=== PATIENT | female | born 1955 | race Caucasian/White ===

== ENCOUNTER 2016-12-17 05:45 | Day surgery (SDC) | payer OTHER ==
--- NOTE | 2016-12-11 15:29 | EKG Report ---
Test Performed on : 12/11/2016 3:14:54 PM Test Reason : PAT Blood Pressure : / mmHG Vent. Rate : 064 BPM Atrial Rate : 064 BPM P-R Int : 182 ms QRS Dur : 088 ms QT Int : 422 ms P-R-T Axes : 066 069 070 degrees QTc Int : 435 ms Normal sinus rhythm. Normal ECG No previous ECGs available Confirmed by Sera CAMPOS, Edy Caceres ([id number]) on 12/12/2016 9:29:26 AM
[2016-12-11 15:37] LABS: URINE MICRO REVIEW NEEDED? NO; URINE SOURCE CLEAN CATCH
[2016-12-11 15:55] LABS: HEMATOCRIT 42.4 % (37.0-47.0); HEMOGLOBIN 13.7 g/dL (12.0-16.0); MCH 28.1 PG (27-31); MCHC 32.3 g/dL (33-37); MCV 86.9 FL (81-99); MPV 11.4 FL (7.4-10.4); RBC 4.88 XMIL (4.2-5.4)
[2016-12-11 15:58] LABS: BILIRUBIN URINE NEGATIVE (NEGATIVE); BLOOD URINE NEGATIVE (NEGATIVE); COLOR YELLOW; GLUCOSE URINE NEGATIVE (NEGATIVE); LEUKOCYTES URINE NEGATIVE (NEGATIVE); NITRITE URINE NEGATIVE (NEGATIVE); PH URINE 5.5; PROTEIN URINE NEGATIVE (NEGATIVE); SP GRAVITY URINE 1.023; TURBIDITY URINE CLEAR (CLEAR); UROBILINOGEN URINE NORMAL (NORMAL)
[2016-12-11 15:59] LABS: UR EPITHELIAL CELLS <10 /HPF (<10); URINE BACTERIA NEGATIVE /HPF; URINE RBC <10 /HPF (<10); URINE WBC <10 /HPF (<10)
[2016-12-11 16:13] LABS: AGAP 12; ALBUMIN 4.2 g/dL (3.5-5.0); ALKALINE PHOSPHATASE 163 U/L (32-104); BUN 16 mg/dL (8-22); CALCIUM 9.1 mg/dL (8.8-10.2); CHLORIDE 98 mmol/L (98-107); COSMO 275; GOT 22 U/L (10-30); GPT 23 U/L (10-36); POTASSIUM 4.2 mmol/L (3.5-5.1); SODIUM 137 mmol/L (136-145); TCO2 27 mmol/L (25-35); TOTAL BILIRUBIN 0.18 mg/dL (0.20-1.00); TOTAL PROTEIN 7.8 g/dL (6.3-8.3)
[2016-12-17] MEDS ORDERED: TRANSDERM-SCOP ONE (06:12)
[2016-12-17] MEDS ORDERED: PEPCID ONE (06:12)
[2016-12-17] MEDS ORDERED: LR 1,000 ML ONE ×2 (06:12→16:33)
[2016-12-17] MEDS ORDERED: LOVENOX ONE (06:12)
[2016-12-17] MEDS ORDERED: KEFZOL 2 GM/D5W 50 ML ONE (06:12)
[2016-12-17] MEDS ORDERED: REGLAN ONE (06:12)
[2016-12-17] MEDS ORDERED: MURI-LUBE MINERAL OIL ONE (09:30)
[2016-12-17] MEDS ORDERED: BACITRACIN ONE (09:30)
[2016-12-17] MEDS ORDERED: METHYLENE BLUE 1% ONE (10:14)
--- NOTE | 2016-12-17 13:54 | OPERATIVE NOTE ---
PROCEDURE DATE: 12/17/2016 PREOPERATIVE DIAGNOSIS: Right breast cancer. POSTOPERATIVE DIAGNOSIS: Right breast cancer with metastases to the right axillary nodes. PRINCIPAL PROCEDURE: 1. Right breast lumpectomy. 2. Right axillary sentinel lymph node biopsy x1. 3. Completion right axillary lymph node dissection. SURGEON: Annamarie Martinez MD ARTS EDUCATION TEACHER: Marika Marks RN. ANESTHESIA: General. ESTIMATED BLOOD LOSS: 75 mL. DRAINS: Per Dr. Avendaño. INDICATIONS: Ms. Latrice Interiaon is a 61-year-old white female who noticed a palpable right breast mass along the inframammary fold medially in the right breast. She underwent mammogram and ultrasound which suggested a 2.4 to 2.5 cm mass just superior to the inframammary fold, medially in the right breast. 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 We discussed surgical treatment options and she chose breast conservation with bilateral breast reduction with the help of our plastic surgeon, Dr. Avendaño. FINDINGS: We had a generous lumpectomy around the inferior medial 2.47 mass just above the inframammary fold on the left. Dr. Avendaño had marked the reduction scars and that included skin overlying our tumor and a generous amount of breast tissue circumferentially around the breast cancer. Surely we felt our margins would be negative. I did do a sentinel lymph node biopsy on palpation of the right axilla, doing the sentinel lymph node. I was concerned about how firm several lymph nodes felt and whether they were even adhered to each other. We sent 1 down as sentinel node #1 and the frozen section documented cancer within this node. Because of the abnormal exam of the axilla and possible even matted lymph nodes, I decided to proceed with a completion right axillary lymph node dissection despite doing breast conservation with bilateral breast reduction. Multiple lymph nodes appeared to be positive as I dissected out the axilla. We did observe the long thoracic and thoracodorsal nerves and felt we preserved them throughout our dissection. We felt we had a clean dissection of level 1 and 2 lymph nodes. DESCRIPTION OF PROCEDURE: The patient was brought to the operating room, placed supine, and received general anesthesia. She had already been marked for her bilateral breast reduction per Dr. Avendaño. She was prepped and draped per Dr. Avendaño. She received prophylactic antibiotics. Initially Dr. Avendaño and I worked together on the right side to determine our incisions and the lumpectomy. After incisions were made on the skin for the reduction, I have performed the lumpectomy of the right breast using cautery. We removed the skin overlying the tumor and a generous amount of breast tissue circumferentially around this tumor. The dissection was performed using cautery and we removed this breast tissue down to the pectoralis major muscle as our deep margin. It was sent to the pathologist for permanent section. I then made an oblique incision beginning in the right axilla and cautery was used to get down through the subcutaneous fat to the fat of the axilla and a lymph node was found which was palpably abnormal. Because of its firmness and it was enlarged, it was removed and sent to the pathologist for frozen section and came back positive tumor which we were not surprised. Because multiple lymph nodes were positive by clinical exam and I was worried that some were even matted, I proceeded with a completion right axillary lymph node dissection. We defined our margins initially. Using cautery I came down along the lateral aspect of the pectoralis major muscle and minor muscle onto the serratus anterior muscles. Laterally I identified the latissimus dorsi and superiorly I identified the axillary vein. We used medium clips to control some branches off the vein and also some small arteries draped across the axillary vein. We identified high in the axilla the long thoracic and thoracodorsal nerves and dissected all of the soft tissue in between these nerves from superior to inferior. We followed the course of these nerves along this serratus anterior and into the latissimus dorsi preserving the nerves along their length and taking all the soft tissue and lymph nodes in between these nerves and along the latissimus dorsi and serratus anterior from superior to inferior. We used the ligature for a lot of our dissection. We removed the axillary contents from the right axilla and sent them down to the pathologist for permanent section. We felt we had a clean dissection of the right axilla and there was no evidence of ongoing bleeding and we felt we preserved the long thoracic and thoracodorsal nerves. Dr. Avendaño was called to continue working on the bilateral breast reduction and closure of our wounds. I spoke with the after the procedure.
[2016-12-17] MEDS: KEFZOL 1 GM/D5W 50 ML ONE ×2 (14:06→14:15)
[2016-12-17] MEDS ORDERED: DIPRIVAN 1% ONE (16:18)
[2016-12-17] MEDS ORDERED: FENTANYL ONE (16:18)
[2016-12-17] MEDS ORDERED: NORCURON ONE (16:43)
[2016-12-17] MEDS ORDERED: EPHEDRINE ONE (16:43)
[2016-12-17] MEDS ORDERED: ZOFRAN ONE (16:43)
[2016-12-17] MEDS ORDERED: NEOSTIGMINE ONE (16:43)
[2016-12-17] MEDS ORDERED: MORPHINE ONE ×2 (16:43→16:53)
[2016-12-17] MEDS ORDERED: ROBINUL ONE (16:43)
[2016-12-17] MEDS ORDERED: DECADRON ONE (16:44)
[2016-12-17] MEDS ORDERED: XYLOCAINE-MPF 2% ONE (16:44)
[2016-12-17] MEDS ORDERED: LR 2,000 ML ONE (16:44)
[2016-12-17] MEDS ORDERED: QUELICIN (DOSE) ONE (16:44)
[2016-12-17] MEDS ORDERED: NORCO-10 ONE (17:23)
--- NOTE | 2016-12-17 18:43 | OPERATIVE NOTE ---
PROCEDURE DATE: 12/17/2016 PROCEDURE: Bilateral reduction mammoplasty in combination with right lumpectomy for breast cancer. SURGEON: Dr. Dominick Avendaño. The ICD 10 diagnosis code for this case is Z85.3, personal history of breast cancer and N62 breast hypertrophy. [place] [address], reduction mammoplasty and 25334-29 reduction mammoplasty of the other side. INDICATION FOR PROCEDURE: This patient is a 61-year-old, white female who has a new breast cancer diagnosed by Dr. Martinez. She has large ptotic breasts and she is slightly overweight. She is an excellent candidate for lumpectomy regarding taking care of her breast cancer and she is then also an excellent candidate for doing a reduction at the same time as a lumpectomy to lift and re-shape both of her breasts and not leave her with a deformity. This plan was acceptable to Dr. Martinez and the patient and she was seen in the office for informed consent for this procedure on 12/11/2016. At that point, she understood that she would have a bilateral reduction mammoplasty in combination with a lumpectomy to be done by Dr. Martinez. She understood that exact bra cup size change cannot be guaranteed and exact shape changes could not be guaranteed and her case was more complicated because we are doing it in combination with the medial lumpectomy on the right breast. She understands the risks include infection, blood loss, blood clots in legs, heart problems, lung problems, allergic reactions, or blood and serum collections in the operative sites that might require drainage. She understands exact size and shape cannot be guaranteed as with nonoperative breast there can be some asymmetry from side to side. She knows her skin incision will be around the areola from the areola to the inferior fold and within the inframammary fold and that is where the scars will be. She understands that her nipples will be transferred as skin grafts so we can remove the maximum amount of ductal tissue from the back of the grafts and maximum amount of breast tissue from inside of the breast. She understands she will lose her nipple sensation. She knows in the future she is to continue have mammography as ordered by her family physician, GENERAL ASSISTANT physician or oncologist or general surgeon. DESCRIPTION OF PROCEDURE: The patient was brought to the operating after she was marked in outpatient surgery in sitting position for the reduction. She went to the operating room. Under general anesthesia prepped and draped. The operation began by doing the W pattern skin flap incision on the right side, lifting those flaps for a small amount superiorly, then doing the inferior incision both along the inferior border and then the inferior vertical incision where the pedicle normally would be. Then Dr. Martinez took over to complete the resection and make sure he felt like he had an adequate wedge of tissue around the lump and he thought he did. Prior to doing that he did a sentinel lymph node biopsy and those were positive so he did a lymph node dissection on the right side. While he was working on the lymph node dissection, I did the breast reduction on the left side, lifting the W pattern flaps and removing the breast tissue from medial to lateral and de-epithelializing the central pedicle. When Dr. Martinez was done on the right side, attention was then turned to completing that reduction. The lateral dissection was then done. The pedicle was more lateral than normal because of the lumpectomy so the skin flap was left thicker on the medial side to fill in the defect from the lumpectomy and the lateral portion of the pedicle that was remained was stitched to the chest to keep good fill volume. She was irrigated with bacitracin solution and hemostasis was achieved with electrocautery. She was tacked closed with silk sutures over drains. Both pedicles were tacked to the pectoralis muscle with 2-0 Polysorb sutures. She was closed with an interrupted 3-0 Polysorb deep dermal sutures at the junction of the flaps followed by a running 3-0 Polysorb deep dermal suture, followed by running 4-0 Biosyn subcuticular stitch. The verticals were closed with interrupted 3-0 Polysorb sutures. The drain was placed in the axillary node dissection site and then that incision that was a counter incision in the right axilla was closed with some 2-0 Polysorb sutures in the deep fat, 3-0 Polysorb deep dermal sutures, then a running 4-0 Biosyn subcuticular stitch. All the drains were secured with silk drainage stitches. She was put back in the sitting position. The level of the nipple exit which were to be marked was marked with a 30 mm nipple areolar marker. This was de-epithelialized to be a recipient bed for the nipples. The nipples were thinned on the back table and then were placed back on the breast as full-thickness skin grafts. They were held in place with eight 4-0 silks left long to make a tie-over bolster and then a running 5-0 nylon stitch. Bolsters made of mineral oil-soaked cotton and Xeroform gauze. She tolerated the procedure well and was transferred to the recovery room in good condition. The total amount of resection for the reduction on the right breast was 886 g. The total amount of resection for reduction of the left breast was 682 g.
[2016-12-17 18:48] VITALS: BP 145/93
== END 2016-12-17 19:01 | disposition home or self-care (01) ==
LOC: OPS 05:45
PROVIDERS: ATTEND Surgery Plastic and Reconstructive Surgery
DX: C50.911 Malignant neoplasm of unspecified site of right female breast (principal); C77.3 Secondary and unspecified malignant neoplasm of axilla and upper limb lymph nodes
CPT/HCPCS: 38792; 80053; 81001; 85027; 88307; 88331; 93005; 93010; A9520; J0330; J0690; J1100; J1650; J2270; J2405; J3010; J7120; Q9968; J2710

== ENCOUNTER 2016-12-20 04:51 | Emergency (ER) ==
--- NOTE | 2016-12-20 05:22 | PROVIDER DOCUMENTATION ---
HPI-Chest Pain - General Source: patient - History of Present Illness-CP Location: reports: central Chest Pain Radiation: reports: neck (rt side) Quality of Pain: reports: aching, sharp Severity in ED: moderate Onset/Duration: abrupt Timing: improving (2/6) Context/Activities at Onset: reports: rest Modifying Factors: improves with: rest Associated Symptoms: reports: diaphoresis, shortness of breath Nitro Today/Relief: no nitro taken today Aspirin Treatment Today: no aspirin today Prior Chest Pain/Cardiac Workup: reports: no prior chest pain, stress test (2014 ) Similar Symptoms Previously?: No Recently Seen Here or By Another Healthcare Provider: Yes (seen by plastic sx yesterd for dressing chnge) <Kelechi Burgos - Last Filed: 12/20/16 06:02> <Sherrell Wagner - Last Filed: 12/20/16 10:23> - General Chief Complaint: Chest Pain Stated Complaint: CP Time Seen by Provider: 12/20/16 05:09 Allergies/Adverse Reactions: Patient Allergies Allergy/AdvReac Type Severity Reaction Status Date / Time No Known Allergies Allergy Verified 12/20/16 05:20 Home Medications: Home Medication List Medication Instructions Recorded Confirmed Last Taken Type Cephalexin [Keflex] 500 mg PO TID 12/20/16 12/20/16 12/19/16 10:00 History Hydrocodone/APAP 10 mg/325 mg 1 each PO Q4H 12/20/16 12/20/16 12/20/16 02:00 History [[place]-10] - History of Present Illness-CP Nature of Presenting Problem: pt had bilateral breast reduction and ca removal re breast /pt wake up 1 hr ago w/rt cp and sob assoc w/hot sweating lasting few mins ...still feeling sore in top of her center chest (Kelechi Burgos) Review of Systems - Adult - REVIEW OF SYSTEMS - ADULT Constitutional: reports: see HPI All Other Systems: Reviewed and Negative <Kelechi Burgos - Last Filed: 12/20/16 06:02> Past History - Adult - PAST MEDICAL HISTORY-ADULT Review of Records: reports: Old Records Reviewed, Nursing Assessment Review, Medications Reviewed, Social history reviewed & non-contributory. Major Childhood Illnesses: reports: denies history Cardiovascular: reports: denies history Respiratory: reports: denies history Gastrointestinal: reports: denies history Genitourinary: reports: denies history Musculoskeletal: reports: denies history Psychiatric: reports: denies history Endocrine/Immune: reports: cancer - PRIOR SURGERIES/PROCEDURES Surgical/Procedure History: reports: reviewed, not pertinent - PRIOR HOSPITALIZATIONS Prior Hospitalizations: reports: for other non-related - IMMUNIZATION STATUS Childhood Immunizations: See Nurse Assessment Flu Vaccine: See Nurse Assessment - FAMILY HISTORY Family History: reviewed, not pertinent - SOCIAL HISTORY Smoking: denies Provider spent 3-5 mins advising pt. on dangers of tobacco.: Discussed manners to quit use, and f/u contacts for add'l counseling. Substance Use: none/never Living Situation: family <Kelechi Burgos - Last Filed: 12/20/16 06:02> Physical Exam-General - PHYSICAL EXAM-ADULT Initial Vital Signs Reviewed: Yes - CONSTITUTIONAL General Appearance: appears well, alert, no apparent distress - EYES Eyes: PERRL/EOMI, pink conjunctivae - HEAD, EARS, NOSE, MOUTH & THROAT HENMT: normocephalic/atraumatic, moist mucous membranes, normal ENT inspection - NECK Neck: non-tender, full range of motion, supple, normal inspection - RESPIRATORY Respiratory: no respiratory distress, no accessory muscle use, decreased breath sounds (rt side), pain on inspiration. negative: retractions - CARDIOVASCULAR Cardiovascular: normal peripheral pulses, regular rate, rhythm, no edema, no gallop - CHEST (BREASTS) Chest/Breast: tenderness (upper center chest) - GASTROINTESTINAL (ABDOMEN) Abdominal Exam: normal bowel sounds, non tender, soft, no organomegaly - LYMPHATIC Lymphatic: no adenopathy, axilla node tender - MUSCULOSKELETAL Back Exam: normal inspection, no CVA tenderness, no vertebral tenderness Extremity: normal range of motion, non-tender - SKIN Integumentary: normal color, normal turgor, other (patent vacum drainge to both breast /no pus drainage) - NEUROLOGIC Neurologic: telesales representative II-XII nml as tested, grossly normal, no motor/sensory deficits - PSYCHIATRIC Psych/Mental Status: normal mood/affect, oriented x 3 <Kelechi Burgos - Last Filed: 12/20/16 06:02> Progress - REASSESSMENT Reassessment #1 Time Reassessed: 05:40 Status: improving - EKG 1 Time of EKG reading by physician:: 05:15 EKG Interpretation (*Must complete 3 of following elements*): Normal Rate: 75 Rhythm: snr [place]: normal QRS: normal ST Wave: non-specific ST changes - CHANGE OF SHIFT REPORT (ED Provider) Report Given and Care Transferred to:: dr sr Time of Transfer: 06:03 Items Pending: CT/MRI Results, Physician Consult/Arrival <Kelechi Burgos M - Last Filed: 12/20/16 06:02> - REASSESSMENT Reassessment #2 Time Reassessed: 10:21 Status: improving (Pt is doing better, pain free. Ready to go home. Reports seh has anxiety after surgery.) - XRAY 1 XRAY Study: Chest Impression: Normal - CT/MRI 1 CT Results: CT chest PE study - no PE, bibasilar atelectasis and mild gas trapping. Cmg <Sherrell Wagner X - Last Filed: 12/20/16 10:23> - PLAN OF CARE/RESULTS Progress/Plan/Lab Results: Laboratory Results - last 24 hr 12/20/16 12/20/16 12/20/16 05:30 05:30 05:30 WBC 8.41 RBC 3.61 L Hgb 10.0 L Hct 31.9 L MCV 88.4 MCH 27.7 MCHC 31.3 L RDW Std Deviation 14.6 H Plt Count 277 MPV 11.7 H Immature Gran % (Auto) 0.2 Neut % (Auto) 54.4 Lymph % (Auto) 34.1 [place] % (Auto) 8.1 Eos % (Auto) 3.1 Baso % (Auto) 0.1 Immature Gran # (Auto) 0.02 Neut # (Auto) 4.57 Lymph # (Auto) 2.87 [place] # (Auto) 0.68 H Eos # (Auto) 0.26 Baso # (Auto) 0.01 PT INR PTT (Actin FS) D-Dimer 0.26 Specimen Type Sample Site pH pCO2 pO2 HCO3 Base Excess Oxyhemoglobin ABG O2 Sat (Calculated) ABG O2 Saturation ABG Carboxyhemoglobin ABG Methemoglobin Edy Test A-a O2 Difference Total Hemoglobin Lactate Blood Gas Modality FiO2 % Sodium 136 Potassium 4.3 Chloride 97 L Carbon Dioxide 27 Anion Gap 12 BUN 10 Creatinine 0.6 Estimated GFR/1.73 m2 > 60 BUN/Creatinine Ratio 17 Glucose 99 POC Glucose Calculated Osmolality 271 Calcium 8.5 L Total Bilirubin 0.37 AST 98 H ALT 66 H Alkaline Phosphatase 136 H Creatine Kinase 63 Troponin T Scz-Y-Fncxlwaurgq Pept Total Protein 6.4 Albumin 3.2 L Globulin 3.2 Albumin/Globulin Ratio 1.0 12/20/16 12/20/16 12/20/16 05:30 05:30 05:30 WBC RBC Hgb Hct MCV MCH MCHC RDW Std Deviation Plt Count MPV Immature Gran % (Auto) Neut % (Auto) Lymph % (Auto) [place] % (Auto) Eos % (Auto) Baso % (Auto) Immature Gran # (Auto) Neut # (Auto) Lymph # (Auto) [place] # (Auto) Eos # (Auto) Baso # (Auto) PT 10.3 INR 0.97 PTT (Actin FS) 25.9 D-Dimer Specimen Type Sample Site pH pCO2 pO2 HCO3 Base Excess Oxyhemoglobin ABG O2 Sat (Calculated) ABG O2 Saturation ABG Carboxyhemoglobin ABG Methemoglobin Edy Test A-a O2 Difference Total Hemoglobin Lactate Blood Gas Modality FiO2 % Sodium Potassium Chloride Carbon Dioxide Anion Gap BUN Creatinine Estimated GFR/1.73 m2 BUN/Creatinine Ratio Glucose POC Glucose Calculated Osmolality Calcium Total Bilirubin AST ALT Alkaline Phosphatase Creatine Kinase Troponin T < 0.010 Nox-Q-Nedxrgbihju Pept 174 Total Protein Albumin Globulin Albumin/Globulin Ratio 12/20/16 12/20/16 12/20/16 05:35 07:12 09:00 WBC RBC Hgb Hct MCV MCH MCHC RDW Std Deviation Plt Count MPV Immature Gran % (Auto) Neut % (Auto) Lymph % (Auto) [place] % (Auto) Eos % (Auto) Baso % (Auto) Immature Gran # (Auto) Neut # (Auto) Lymph # (Auto) [place] # (Auto) Eos # (Auto) Baso # (Auto) PT INR PTT (Actin FS) D-Dimer Specimen Type ARTERIAL Sample Site R RADIAL pH 7.41 pCO2 49 H pO2 117 H HCO3 29.3 H Base Excess 5.6 H Oxyhemoglobin 95.5 ABG O2 Sat (Calculated) 14.0 L ABG O2 Saturation 98.3 ABG Carboxyhemoglobin 1.20 ABG Methemoglobin 1.5 Edy Test YES A-a O2 Difference -29.0 Total Hemoglobin 10.3 L Lactate 0.70 Blood Gas Modality ROOM AIR FiO2 % 21.0 Sodium Potassium Chloride Carbon Dioxide Anion Gap BUN Creatinine Estimated GFR/1.73 m2 BUN/Creatinine Ratio Glucose POC Glucose 338 H Calculated Osmolality Calcium Total Bilirubin AST ALT Alkaline Phosphatase Creatine Kinase 54 Troponin T Lhf-Y-Owkziwexwvf Pept Total Protein Albumin Globulin Albumin/Globulin Ratio 12/20/16 09:00 WBC RBC Hgb Hct MCV MCH MCHC RDW Std Deviation Plt Count MPV Immature Gran % (Auto) Neut % (Auto) Lymph % (Auto) [place] % (Auto) Eos % (Auto) Baso % (Auto) Immature Gran # (Auto) Neut # (Auto) Lymph # (Auto) [place] # (Auto) Eos # (Auto) Baso # (Auto) PT INR PTT (Actin FS) D-Dimer Specimen Type Sample Site pH pCO2 pO2 HCO3 Base Excess Oxyhemoglobin ABG O2 Sat (Calculated) ABG O2 Saturation ABG Carboxyhemoglobin ABG Methemoglobin Edy Test A-a O2 Difference Total Hemoglobin Lactate Blood Gas Modality FiO2 % Sodium Potassium Chloride Carbon Dioxide Anion Gap BUN Creatinine Estimated GFR/1.73 m2 BUN/Creatinine Ratio Glucose POC Glucose Calculated Osmolality Calcium Total Bilirubin AST ALT Alkaline Phosphatase Creatine Kinase Troponin T < 0.010 Rwf-K-Gdpobjrgvrq Pept Total Protein Albumin Globulin Albumin/Globulin Ratio Orders Category Date Time Status Cardiac Monitoring DIRECTED Care 12/20/16 05:14 Active Saline Loc NOW Care 12/20/16 05:14 Active ANGIOGRAM/PULMONARY ARTERIES [CT] Stat Exams 12/20/16 06:43 Draft CHEST-2 VIEWS [RAD] Stat Exams 12/20/16 05:14 Completed ABG [RESP] Routine Lab 12/20/16 05:35 Completed BLOOD CULTURE [BLDCUL] Stat Lab 12/20/16 08:08 Results CBC WITH ELECTRONIC DIFF [HEME] Stat Lab 12/20/16 05:30 Completed CK PROFILE [SP CHEM] Stat Lab 12/20/16 05:30 Completed CK PROFILE [SP CHEM] Stat Lab 12/20/16 09:00 Completed COMPREHENSIVE METABOLIC PANEL [CHEM] Stat Lab 12/20/16 05:30 Completed D-DIMER [CHEM] Stat Lab 12/20/16 05:30 Completed PRO B-NATRIURETIC PEPTIDE Stat Lab 12/20/16 05:30 Completed PROTIME WITH INR [COAG] Stat Lab 12/20/16 05:30 Completed PTT [COAG] Stat Lab 12/20/16 05:30 Completed TROPONIN T Stat Lab 12/20/16 05:30 Completed TROPONIN T Stat Lab 12/20/16 09:00 Completed EKG [EKG] Stat Ther 12/20/16 05:14 Draft Vital Signs Temp Pulse Resp BP Pulse Ox 12/20/16 09:40 68 16 120/71 100 12/20/16 07:46 70 14 145/75 95 12/20/16 06:12 66 16 123/82 98 12/20/16 05:17 68 18 124/68 97 12/20/16 05:04 97.8 F 72 20 147/77 97 No Known Allergies Allergy (Verified 12/20/16 05:20) Cephalexin [Keflex] 500 mg PO TID 12/20/16 Hydrocodone/APAP 10 mg/325 mg [[place]-10] 1 each PO Q4H 12/20/16 Laboratory 12/20/16 12/20/16 12/20/16 09:00 09:00 07:12 WBC RBC Hgb Hct MCV MCH MCHC RDW Std Deviation Plt Count MPV Immature Gran % (Auto) Neut % (Auto) Lymph % (Auto) [place] % (Auto) Eos % (Auto) Baso % (Auto) Immature Gran # (Auto) Neut # (Auto) Lymph # (Auto) [place] # (Auto) Eos # (Auto) Baso # (Auto) PT INR PTT (Actin FS) D-Dimer Specimen Type Sample Site pH pCO2 pO2 HCO3 Base Excess Oxyhemoglobin ABG O2 Sat (Calculated) ABG O2 Saturation ABG Carboxyhemoglobin ABG Methemoglobin Edy Test A-a O2 Difference Total Hemoglobin Lactate Blood Gas Modality FiO2 % Sodium Potassium Chloride Carbon Dioxide Anion Gap BUN Creatinine Estimated GFR/1.73 m2 BUN/Creatinine Ratio Glucose POC Glucose 338 H Calculated Osmolality Calcium Total Bilirubin AST ALT Alkaline Phosphatase Creatine Kinase 54 Troponin T < 0.010 Hgi-D-Npnejifwwtx Pept Total Protein Albumin Globulin Albumin/Globulin Ratio 12/20/16 12/20/16 12/20/16 05:35 05:30 05:30 WBC RBC Hgb Hct MCV MCH MCHC RDW Std Deviation Plt Count MPV Immature Gran % (Auto) Neut % (Auto) Lymph % (Auto) [place] % (Auto) Eos % (Auto) Baso % (Auto) Immature Gran # (Auto) Neut # (Auto) Lymph # (Auto) [place] # (Auto) Eos # (Auto) Baso # (Auto) PT 10.3 INR 0.97 PTT (Actin FS) 25.9 D-Dimer Specimen Type ARTERIAL Sample Site R RADIAL pH 7.41 pCO2 49 H pO2 117 H HCO3 29.3 H Base Excess 5.6 H Oxyhemoglobin 95.5 ABG O2 Sat (Calculated) 14.0 L ABG O2 Saturation 98.3 ABG Carboxyhemoglobin 1.20 ABG Methemoglobin 1.5 Edy Test YES A-a O2 Difference -29.0 Total Hemoglobin 10.3 L Lactate 0.70 Blood Gas Modality ROOM AIR FiO2 % 21.0 Sodium Potassium Chloride Carbon Dioxide Anion Gap BUN Creatinine Estimated GFR/1.73 m2 BUN/Creatinine Ratio Glucose POC Glucose Calculated Osmolality Calcium Total Bilirubin AST ALT Alkaline Phosphatase Creatine Kinase Troponin T < 0.010 Wcx-H-Jnubuukllpf Pept Total Protein Albumin Globulin Albumin/Globulin Ratio 12/20/16 12/20/16 12/20/16 05:30 05:30 05:30 WBC RBC Hgb Hct MCV MCH MCHC RDW Std Deviation Plt Count MPV Immature Gran % (Auto) Neut % (Auto) Lymph % (Auto) [place] % (Auto) Eos % (Auto) Baso % (Auto) Immature Gran # (Auto) Neut # (Auto) Lymph # (Auto) [place] # (Auto) Eos # (Auto) Baso # (Auto) PT INR PTT (Actin FS) D-Dimer 0.26 Specimen Type Sample Site pH pCO2 pO2 HCO3 Base Excess Oxyhemoglobin ABG O2 Sat (Calculated) ABG O2 Saturation ABG Carboxyhemoglobin ABG Methemoglobin Edy Test A-a O2 Difference Total Hemoglobin Lactate Blood Gas Modality FiO2 % Sodium 136 Potassium 4.3 Chloride 97 L Carbon Dioxide 27 Anion Gap 12 BUN 10 Creatinine 0.6 Estimated GFR/1.73 m2 > 60 BUN/Creatinine Ratio 17 Glucose 99 POC Glucose Calculated Osmolality 271 Calcium 8.5 L Total Bilirubin 0.37 AST 98 H ALT 66 H Alkaline Phosphatase 136 H Creatine Kinase 63 Troponin T Brf-X-Evxfenpsndt Pept 174 Total Protein 6.4 Albumin 3.2 L Globulin 3.2 Albumin/Globulin Ratio 1.0 12/20/16 05:30 WBC 8.41 RBC 3.61 L Hgb 10.0 L Hct 31.9 L MCV 88.4 MCH 27.7 MCHC 31.3 L RDW Std Deviation 14.6 H Plt Count 277 MPV 11.7 H Immature Gran % (Auto) 0.2 Neut % (Auto) 54.4 Lymph % (Auto) 34.1 [place] % (Auto) 8.1 Eos % (Auto) 3.1 Baso % (Auto) 0.1 Immature Gran # (Auto) 0.02 Neut # (Auto) 4.57 Lymph # (Auto) 2.87 [place] # (Auto) 0.68 H Eos # (Auto) 0.26 Baso # (Auto) 0.01 PT INR PTT (Actin FS) D-Dimer Specimen Type Sample Site pH pCO2 pO2 HCO3 Base Excess Oxyhemoglobin ABG O2 Sat (Calculated) ABG O2 Saturation ABG Carboxyhemoglobin ABG Methemoglobin Eyd Test A-a O2 Difference Total Hemoglobin Lactate Blood Gas Modality FiO2 % Sodium Potassium Chloride Carbon Dioxide Anion Gap BUN Creatinine Estimated GFR/1.73 m2 BUN/Creatinine Ratio Glucose POC Glucose Calculated Osmolality Calcium Total Bilirubin AST ALT Alkaline Phosphatase Creatine Kinase Troponin T Ixe-Z-Mdsolduhcen Pept Total Protein Albumin Globulin Albumin/Globulin Ratio (Sherrell Wagner) Departure - Departure Time of Disposition Order: 06:00 Certified Medical Emergency: Emergent <Kelechi Burgos - Last Filed: 12/20/16 06:02> - Departure Time of Disposition Order: 10:22 Certified Medical Emergency: Emergent <Sherrell Wagner - Last Filed: 12/20/16 10:23> - Departure DIAGNOSIS: Chest pain at rest Disposition: HOME 01 Condition: Stable Additional Instructions: Follow up with PCP in 1-2 days for an out patient stress test as needed. Return to ER if your symptoms worsen. Continue all home medications. Referrals: Cristiano Paredes DO [Primary Care Provider] - Physician Attestation
[2016-12-20 05:39] LABS: MANUAL DIFF NEEDED? NO
[2016-12-20 05:43] LABS: BASO% 0.1 % (0.0-0.8); EOS# 0.26 X1000 (0.0-0.7); EOS% 3.1 % (0.0-10.0); HEMATOCRIT 31.9 % (37.0-47.0); IMM GRAN# 0.02 X1000 (0.0-0.04); IMM GRAN% 0.2 % (0.0-0.5); LYMPH# 2.87 X1000 (1.2-3.4); LYMPH% 34.1 % (20.5-51.1); MCH 27.7 PG (27-31); MCHC 31.3 g/dL (33-37); MCV 88.4 FL (81-99); MONO# 0.68 X1000 (0.11-0.59); MONO% 8.1 % (1.7-9.3); MPV 11.7 FL (7.4-10.4); NEUT% 54.4 % (42.2-75.2); PLT 277 X1000 (130-400); RBC 3.61 XMIL (4.2-5.4)
[2016-12-20 05:44] LABS: ALLEN TEST YES; BE 5.6 mmoll (-3.0-3.0); BLOOD TYPE ARTERIAL; DRAW SITE R RADIAL; METHB 1.5 % (0.0-1.5); PCO2(98.6) 49 mmHg (35-45); PO2(98.6) 117 mmHg (60-100); SAMPLE BLOOD; SAO2 98.3 % (95.0-100.0); THB 10.3 g/dL (11.5-17.4); pH(98.6) 7.41 (7.35-7.45)
[2016-12-20 05:45] LABS: MODALITY ROOM AIR
[2016-12-20 05:54] LABS: INR 0.97; PROTIME 10.3 Seconds (9.2-11.7); PTT 25.9 Seconds (22.0-36.0)
[2016-12-20 06:00] LABS: AGAP 12; ALBUMIN 3.2 g/dL (3.5-5.0); ALKALINE PHOSPHATASE 136 U/L (32-104); BUN 10 mg/dL (8-22); CALCIUM 8.5 mg/dL (8.8-10.2); CHLORIDE 97 mmol/L (98-107); CK PROFILE 63 U/L (24-173); COSMO 271; GOT 98 U/L (10-30); GPT 66 U/L (10-36); POTASSIUM 4.3 mmol/L (3.5-5.1); SODIUM 136 mmol/L (136-145); TCO2 27 mmol/L (25-35); TOTAL BILIRUBIN 0.37 mg/dL (0.20-1.00); TOTAL PROTEIN 6.4 g/dL (6.3-8.3)
--- NOTE | 2016-12-20 07:08 | Diag Imaging Result Document ---
PROCEDURE NAME: CHEST-2 VIEWS - 12/20/2016 FRONTAL AND LATERAL CHEST, TWO VIEWS: FINDINGS: Surgical drains overlie each breast. Poor inspiratory effort. The heart is not enlarged. The vessels are not distended. No pneumothoraces. No pleural effusions. No infiltrates. No free air beneath the diaphragm. IMPRESSION: No acute abnormality.
--- NOTE | 2016-12-20 07:48 | EKG Report ---
Test Performed on : 12/20/2016 04:56:45 AM Test Reason : Chest Pain Blood Pressure : / mmHG Vent. Rate : 075 BPM Atrial Rate : 075 BPM P-R Int : 174 ms QRS Dur : 082 ms QT Int : 402 ms P-R-T Axes : 052 043 083 degrees QTc Int : 448 ms Normal sinus rhythm. Normal ECG When compared with ECG of 11-DEC-2016 15:14, No significant change was found Unconfirmed Result
--- NOTE | 2016-12-20 09:10 | Diag Imaging Result Document ---
PROCEDURE NAME: ANGIOGRAM/PULMONARY ARTERIES - 12/20/2016 CTA CHEST: COMPARISON: None available. FINDINGS: There is no evidence of pulmonary embolism. There is mild atherosclerotic calcification at the aortic arch. There is no evidence of aortic dissection or aneurysm. There is at least mild Cardiomegaly. There is a calcified subcarinal lymph node indicating prior granulomatous disease. There is no evidence of significant lymphadenopathy, otherwise. There is subsegmental atelectasis at the lung bases. There is mosaic attenuation throughout both lungs suggesting mild airtrapping. There are no pleural fluid collections and there is no pneumothorax. There are drainage catheters in both breasts related to recent lumpectomies. There is subcutaneous soft tissue gas related to the indwelling catheters. IMPRESSION: 1. Mild subsegmental atelectasis at the lung bases and diffuse mosaic attenuation suggesting mild airtrapping. 2. No evidence of pulmonary embolism. 3. At least mild cardiomegaly. 4. Changes related to recent breast surgery bilaterally.
[2016-12-20 10:54] VITALS: BP 137/79
== END 2016-12-20 10:48 | disposition home or self-care (01) ==
LOC: ED 04:51
DX: R07.89 Other chest pain (principal); M54.2 Cervicalgia; R61 Generalized hyperhidrosis; R06.02 Shortness of breath; C50.919 Malignant neoplasm of unspecified site of unspecified female breast; Z98.890 Other specified postprocedural states
CPT/HCPCS: 71020; 71275; 80053; 82550; 82805; 82948; 83880; 84484; 85025; 85379; 85610; 85730; 87040; 93005; Q9967